=== PATIENT | male | born 1975 | race African-American/Black ===

== ENCOUNTER 2022-07-05 14:49 | Emergency (ER) | payer MEDICAID ==
[~2022-07-05] VITALS: Ht 172.7 cm; Wt 100.0 kg
[2022-07-05 15:44] LABS: COVID AG,FIA SOURCE NASAL SWAB
[2022-07-05 15:53] VITALS: BP 143/82
[2022-07-05 16:04] LABS: INFLUENZA TYPE A NEGATIVE FOR TYPE A (NEGATIVE); INFLUENZA TYPE B NEGATIVE FOR TYPE B (NEGATIVE)
== END 2022-07-05 16:58 | disposition home or self-care (01) ==
LOC: EMS 14:54
DX: J06.9 Acute upper respiratory infection, unspecified (principal); Z20.822 Contact with and (suspected) exposure to COVID-19; F12.90 Cannabis use, unspecified, uncomplicated; F15.10 Other stimulant abuse, uncomplicated; F17.210 Nicotine dependence, cigarettes, uncomplicated; R06.02 Shortness of breath; R07.9 Chest pain, unspecified
CPT/HCPCS: 87804; 99283